=== PATIENT | female | born 2000 | race Caucasian/White ===

== ENCOUNTER 2019-07-30 17:15 | Emergency (ER) | payer OTHER ==
[~2019-07-30] VITALS: Ht 160 cm; Wt 75.8 kg
[2019-07-30 18:37] LABS: BILIRUBIN,URINE NEGATIVE (NEGATIVE); CLARITY,URINE CLEAR; COLOR,URINE YELLOW; GLUCOSE, URINE (UA) NEGATIVE (NEGATIVE); KETONES,URINE NEGATIVE (NEGATIVE); LEUKOCYTE ESTERASE ,URINE 3+ (NEGATIVE); NITRITE,URINE NEGATIVE (NEGATIVE); PH,URINE 7 (5-9); PROTEIN,URINE 1+ (NEGATIVE)
[2019-07-30 18:58] LABS: BACTERIA,URINE FEW /HPF; RBC,URINE 0-2 /HPF
--- NOTE | 2019-07-30 19:20 | ED Abdominal Pain ---
General Chief Complaint: Abdominal/GI Problems Stated Complaint: ABD PAIN Nursing Triage Note: PATIENT STATES THAT SHE HAS BEEN HAVING ABD PAIN X3 DAYS. SHE HAS TRIED VARIOUS OTC MEDS AND HAD NO RELIEVE. SHE HAS PAIN WITH URINATION. N/V/D. THINKS DIARRHEA IS RELATED TO ALL OF THE STOOL SOFTENERS AND OTS MEDS. SHE HAS INCREASED PAIN WITH TOUCH AND WALKING. PAIN WAS UPPER ABD YESTERDAY BUT LOWER TODAY WITH RAD TO LEFT FLANK. Sepsis Screen: No Definite Risk Source of Information: Patient Exam Limitations: No Limitations History of Present Illness Date Seen by Provider: Jul 30, 2019 Time Seen by Provider: 19:18 Initial Comments To ER with 3 days of lower midline abdominal pain. She initially thought she might be constipated so she's been drinking coffee, prune juice, laxatives at home, now she is having runny stools but the pain hasn't improved. She has some intermittent nausea. No fever no chills Timing/Duration: 2-3 Days Severity/Quality: Moderate Location: Suprapubic Radiation: No Radiation Activities at Onset: None Associated Symptoms: Nausea/Vomiting Allergies and Home Medications Allergies Coded Allergies: No Known Drug Allergies (Unverified , 07/30/19) Patient Home Medication List Home Medication List Reviewed: Yes Review of Systems Review of Systems Constitutional: see HPI; No chills, No fever EENTM: No Symptoms Reported Respiratory: No Symptoms Reported Cardiovascular: No Symptoms Reported Gastrointestinal: See HPI, Abdominal Pain, Nausea Genitourinary: No Symptoms Reported Musculoskeletal: no symptoms reported Skin: no symptoms reported Psychiatric/Neurological: No Symptoms Reported Endocrine: No Symptoms Reported Hematologic/Lymphatic: No Symptoms Reported Past Eyjmzvn-Iolmry-Rohiux Hx Patient Social History Alcohol Use: Occasionally Uses Recreational Drug Use: No Smoking Status: Never a Smoker 2nd Hand Smoke Exposure: No Recent Foreign Travel: No Contact w/Someone Who Travel: No Recent Infectious Disease Expo: No Physical Exam Vital Signs Vital Signs - First Documented 07/30/19 18:15 Pulse 85 Resp 18 B/P (MAP) 122/74 (90) Pulse Ox 18 Capillary Refill : Less Than 3 Seconds Height/Weight/BMI Height: '" Weight: lbs. oz. kg; 29.00 BMI Method: General Appearance: WD/WN, no apparent distress HEENT: PERRL/EOMI, normal ENT inspection Respiratory: no respiratory distress, no accessory muscle use Cardiovascular: regular rate, rhythm, no murmur Gastrointestinal: normal bowel sounds, soft, tenderness Extremities: normal range of motion Neurologic/Psychiatric: alert, normal mood/affect, oriented x 3 Skin: normal color, warm/dry Progress/Results/Core Measures Results/Orders Lab Results Laboratory Tests Test 07/30/19 18:30 07/30/19 19:23 Range/Units Urine Color YELLOW Urine Clarity CLEAR Urine pH 7 5-9 Urine Specific [place] 1.010 L 1.016-1.022 Urine Protein 1+ H NEGATIVE Urine Glucose (UA) NEGATIVE NEGATIVE Urine Ketones NEGATIVE NEGATIVE Urine Nitrite NEGATIVE NEGATIVE Urine Bilirubin NEGATIVE NEGATIVE Urine Urobilinogen NORMAL NORMAL MG/DL Urine Leukocyte Esterase 3+ H NEGATIVE Urine RBC (Auto) 3+ H NEGATIVE Urine RBC 0-2 /HPF Urine WBC 10-25 H /HPF Urine Squamous Epithelial Cells 5-10 /HPF Urine Crystals NONE /LPF Urine Bacteria FEW H /HPF Urine Casts NONE /LPF Urine Mucus SMALL H /LPF Urine Culture Indicated YES White Blood Count 7.7 4.3-11.0 10^3/uL Red Blood Count 4.74 4.35-5.85 10^6/uL Hemoglobin 13.6 11.5-16.0 G/DL Hematocrit 40 35-52 % Mean Corpuscular Volume 85 80-99 FL Mean Corpuscular Hemoglobin 29 25-34 PG Mean Corpuscular Hemoglobin Concent 34 32-36 G/DL Red Cell Distribution Width 13.0 10.0-14.5 % Platelet Count 308 130-400 10^3/uL Mean Platelet Volume 9.4 7.4-10.4 FL Neutrophils (%) (Auto) 50 42-75 % Lymphocytes (%) (Auto) 40 12-44 % Monocytes (%) (Auto) 8 0-12 % Eosinophils (%) (Auto) 2 0-10 % Basophils (%) (Auto) 0 0-10 % Neutrophils # (Auto) 3.8 1.8-7.8 X 10^3 Lymphocytes # (Auto) 3.1 1.0-4.0 X 10^3 Monocytes # (Auto) 0.6 0.0-1.0 X 10^3 Eosinophils # (Auto) 0.2 0.0-0.3 10^3/uL Basophils # (Auto) 0.0 0.0-0.1 10^3/uL Sodium Level 140 135-145 MMOL/L Potassium Level 3.8 3.6-5.0 MMOL/L Chloride Level 106 98-107 MMOL/L Carbon Dioxide Level 22 21-32 MMOL/L Anion Gap 12 5-14 MMOL/L Blood Urea Nitrogen 7 7-18 MG/DL Creatinine 0.83 0.60-1.30 MG/DL Estimat Glomerular Filtration Rate > 60 BUN/Creatinine Ratio 8 Glucose Level 85 70-105 MG/DL Calcium Level 9.7 8.5-10.1 MG/DL Corrected Calcium 9.5 8.5-10.1 MG/DL Total Bilirubin 0.5 0.1-1.0 MG/DL Aspartate Amino Transf (AST/SGOT) 22 5-34 U/L Alanine Aminotransferase (ALT/SGPT) 25 0-55 U/L Alkaline Phosphatase 38 L 40-136 U/L Total Protein 7.5 6.4-8.2 GM/DL Albumin 4.3 3.2-4.5 GM/DL Lipase 8 8-78 U/L My Orders Orders - ENRIQUE CARIAS [employer] Cbc With Automated Diff (07/30/19 19:16) Comprehensive Metabolic Panel (07/30/19 19:16) Lipase (07/30/19 19:16) Ed Iv/Invasive Line Start (07/30/19 19:16) Ct Abd/Pelv W (Appendicitis) (07/30/19 19:16) Ketorolac Injection (Toradol Injection) (07/30/19 19:30) Iohexol Injection (Omnipaque 350 Mg/Ml 1 (07/30/19 19:30) Received Contrast (Hold Metformin- Contr (07/30/19 19:30) Sodium Chloride Flush (Catheter Flush Sy (07/30/19 19:30) Ns (Ivpb) (Sodium Chloride 0.9% Ivpb Bag (07/30/19 19:30) Ondansetron Injection (Zofran Injectio (07/30/19 19:45) Ondansetron Injection (Zofran Injectio (07/30/19 19:39) Medications Given in ED Current Medications Medications Dose Ordered Sig/Lorri Route Start Time Stop Time Status Last Admin Dose Admin Iohexol 100 ml ONCE ONCE IV 07/30/19 19:30 07/30/19 19:31 DC 10/25/19 19:57 96 ML Ketorolac Tromethamine 30 mg ONCE ONCE IVP 07/30/19 19:30 07/30/19 19:31 DC 07/30/19 19:31 30 MG Ondansetron HCl 4 mg ONCE ONCE IVP 07/30/19 19:45 07/30/19 19:46 DC 07/30/19 19:39 4 MG Sodium Chloride 10 ml NEEDED PRN IV 07/30/19 19:30 07/30/19 19:57 10 ML Sodium Chloride 100 ml ONCE ONCE IV 07/30/19 19:30 07/30/19 19:31 DC 07/30/19 19:57 80 ML Vital Signs/I&O 07/30/19 18:15 Pulse 85 Resp 18 B/P (MAP) 122/74 (90) Pulse Ox 18 Blood Pressure Mean: 90 Departure Impression Primary Impression: Urinary tract infection Qualified Codes: N30.00 - Acute cystitis without hematuria Disposition: HOME, SELF-CARE Condition: Stable Departure-Patient Inst. Decision time for Depature: 20:14 Referrals: ALFONSO TORRES DO (PCP) Primary Care Physician MAG TORRES DNP (Family) Primary Care Physician Patient Instructions: Urinary Tract Infection, Adult (DC) Add. Discharge Instructions: 1. Tylenol and ibuprofen for pain control 2. Return to ER for any concerns 3. Antibiotics as directed starting tomorrow. All discharge instructions reviewed with patient and/or family. Voiced understanding. Scripts Cefuroxime Axetil (Cefuroxime) 250 Mg Tablet 250 MG PO BID, #10 TAB Prov: ENRIQUE CARIAS APRN 07/30/19 ENRIQUE CARIAS APRN Jul 30, 2019 19:20
[2019-07-30 19:28] LABS: BASOPHILS % (AUTO) 0 % (0-10); EOSINOPHILS # (AUTO) 0.2 10^3/uL (0.0-0.3); EOSINOPHILS % (AUTO) 2 % (0-10); HEMATOCRIT 40 % (35-52); HEMOGLOBIN 13.6 G/DL (11.5-16.0); LYMPHOCYTES # (AUTO) 3.1 X 10^3 (1.0-4.0); LYMPHOCYTES % (AUTO) 40 % (12-44); MEAN CORPUSCULAR HEMOGLOBIN 29 PG (25-34); MEAN CORPUSCULAR HGB CONC 34 G/DL (32-36); MEAN CORPUSCULAR VOLUME 85 FL (80-99); MEAN PLATELET VOLUME 9.4 FL (7.4-10.4); MONOCYTES # (AUTO) 0.6 X 10^3 (0.0-1.0); MONOCYTES % (AUTO) 8 % (0-12); NEUTROPHILS # (AUTO) 3.8 X 10^3 (1.8-7.8); NEUTROPHILS % (AUTO) 50 % (42-75); PLATELET COUNT 308 10^3/uL (130-400); WHITE BLOOD COUNT 7.7 10^3/uL (4.3-11.0)
[2019-07-30] MEDS ORDERED: KETOROLAC 30 MG/ML VIAL IVP ONE (19:30)
[2019-07-30] MEDS ORDERED: IOHEXOL 350 MG/ML 100 ML (OMNIPAQUE 350) VIAL IV ONE (19:30)
[2019-07-30] MEDS ORDERED: HOLD METFORMIN - RECEIVED CONTRAST 20 ML VIAL IV SCH (19:30)
[2019-07-30] MEDS ORDERED: CATHETER FLUSH 10 ML SYR IV PRN (19:30)
[2019-07-30] MEDS ORDERED: NS 100 ML (IVPB) BAG IV ONE (19:30)
[2019-07-30] MEDS ORDERED: ONDANSETRON 4 MG/2 ML (SDV) Z0FRAN ONE (19:39)
[2019-07-30] MEDS ORDERED: ONDANSETRON 4 MG/2 ML (SDV) Z0FRAN IVP ONE (19:45)
[2019-07-30 19:46] LABS: ALANINE AMINOTRANSFERASE 25 U/L (0-55); ALBUMIN 4.3 GM/DL (3.2-4.5); ALKALINE PHOSPHATASE 38 U/L (40-136); BILIRUBIN,TOTAL 0.5 MG/DL (0.1-1.0); BUN/CREATININE RATIO 8; CALCIUM 9.7 MG/DL (8.5-10.1); CARBON DIOXIDE 22 MMOL/L (21-32); CHLORIDE 106 MMOL/L (98-107); CREATININE SERUM 0.83 MG/DL (0.60-1.30); GFR ESTIMATED > 60; GLUCOSE 85 MG/DL (70-105); LIPASE 8 U/L (8-78); POTASSIUM 3.8 MMOL/L (3.6-5.0); SODIUM 140 MMOL/L (135-145); TOTAL PROTEIN 7.5 GM/DL (6.4-8.2)
--- NOTE | 2019-07-30 20:11 | Diagnostic Imaging Report ---
PROCEDURE: CT abdomen and pelvis with contrast, rule out appendicitis. TECHNIQUE: Multiple contiguous axial images were obtained through the abdomen and pelvis after the administration of intravenous contrast. INDICATION: Nausea. Painful urination. FINDINGS: The lung bases are clear. The liver is normal. Gallbladder and bile ducts are normal. The pancreas and spleen are normal. The adrenal glands and kidneys are normal. As noncontrasted images were not obtained, small renal calculi could not be excluded. Good opacification of the aorta and abdominal vessels and organs. The stomach and small bowel are nondistended. The colon shows normal stool and gas pattern. The appendix is not dilated. There are no appendicoliths. Colon shows normal stool and gas pattern. There are bilateral ovarian cysts measuring approximately 2 cm. There is a small amount of free fluid in the cul-de-sac. The bladder shows only a small amount of urine. No bladder stones or wall thickening. No intra-abdominal adenopathy of pathologic size. IMPRESSION: 1. The appendix is normal. 2. Kidneys, ureters and bladder are normal. 3. Bilateral ovarian cysts with trace of fluid in the cul-de-sac. Dictated by: Dictated on workstation # [id number]
[2019-07-30] MEDS ORDERED: cefTRIAXone FOR IV USE 1,000 MG in WATER (STERILE) FOR INJECTION 10 ML IV ONE (20:15)
[2019-07-30] MEDS ORDERED: CEFU250T80 PO (20:15)
[2019-07-30 20:34] VITALS: BP 111/59
== END 2019-07-30 20:33 | disposition home or self-care (01) ==
LOC: ER 17:18
DX: N39.0 Urinary tract infection, site not specified (principal)
CPT/HCPCS: 36415; 74177; 80053; 81000; 83690; 84703; 85025; 87088; 96374; 96375